=== PATIENT | female | born 1995 | race Caucasian/White ===

== ENCOUNTER 2017-05-17 11:54 | Emergency (ER) | payer MEDICAID ==
[~2017-05-17] VITALS: Ht 154.9 cm; Wt 63.5 kg
[2017-05-17 12:00] VITALS: BP_SYST 114
[2017-05-17 12:20] VITALS: BP_SYST 112
== END 2017-05-17 12:20 | disposition home or self-care (01) ==
LOC: SED 11:54
DX: H00.011 Hordeolum externum right upper eyelid (principal)
CPT/HCPCS: 99283

== ENCOUNTER 2017-12-16 15:04 | Emergency (ER) | payer SELFPAY ==
[~2017-12-16] VITALS: Ht 157.5 cm; Wt 63.5 kg
[2017-12-16 15:17] VITALS: BP_SYST 105
[2017-12-16 15:50] VITALS: BP_SYST 105
== END 2017-12-16 15:50 | disposition home or self-care (01) ==
LOC: SED 15:04
DX: H10.9 Unspecified conjunctivitis (principal)
CPT/HCPCS: 99283

== ENCOUNTER 2018-06-14 21:04 | Emergency (ER) | payer SELFPAY ==
[~2018-06-14] VITALS: Ht 154.9 cm; Wt 61.2 kg
[2018-06-14 21:10] VITALS: BP_SYST 113
[2018-06-14 23:12] VITALS: BP_SYST 112
== END 2018-06-14 23:12 | disposition home or self-care (01) ==
LOC: SED 21:04
DX: S16.1XXA Strain of muscle, fascia and tendon at neck level, initial encounter (principal); S29.012A Strain of muscle and tendon of back wall of thorax, initial encounter; V89.2XXA Person injured in unspecified motor-vehicle accident, traffic, initial encounter; Y93.89 Activity, other specified; Y92.410 Unspecified street and highway as the place of occurrence of the external cause; Y99.8 Other external cause status
CPT/HCPCS: 72128; 99284

== ENCOUNTER 2022-02-08 16:14 | Emergency (ER) | payer OTHER ==
[~2022-02-08] VITALS: Ht 152.4 cm; Wt 65.8 kg
[2022-02-08 16:15] VITALS: BP_SYST 111
--- NOTE | 2022-02-08 16:20 | NUR ---
Patient triaged and placed in waiting room. VSS and patient appears in no acute distress at this time. Accompanied by SELF, awaiting available bed, and MD notified of need for MSE.
[2022-02-08 17:20] LABS: HEMOGLOBIN 12.9 g/dL (12.0-16.0); WHITE BLOOD COUNT (AUTO) 11.5 K/uL (4.8-10.8)
[2022-02-08 17:27] LABS: HEMATOCRIT 38.5 % (36-48); MEAN CORPUSCULAR HEMOGLOBIN 28 pg (27-31); MEAN CORPUSCULAR HGB CONC 33 % (32-36); MEAN CORPUSCULAR VOLUME 85 fL (79.0-98.0); PLATELET COUNT (AUTO) 321 K/uL (130-430); RED BLOOD CELL COUNT(AUTO) 4.53 MIL/uL (4.2-6.2); RED CELL DISTRIBUTION WIDTH 13.8 % (9.0-15.0)
[2022-02-08 17:40] LABS: CALCIUM 9.8 mg/dL (8.4-11.0); CREATININE 0.82 mg/dL (0.55-1.30)
[2022-02-08 17:46] LABS: ALBUMIN 3.9 g/dL (3.4-4.8)
[2022-02-08 17:48] LABS: BAND % (MANUAL) 0 % (0-6); BASOPHILS % (MANUAL) 0 % (0-2); EOSINOPHILS % (MANUAL) 16 % (0-7); LYMPHOCYTES % (MANUAL) 29 % (20-46); MONOCYTES % (MANUAL) 3 % (0-11)
[2022-02-08 17:57] LABS: TOTAL BILIRUBIN 0.1 mg/dL (0.0-1.0)
--- NOTE | 2022-02-08 18:29 | NUR ---
BROUGHT BACK TO BED #7 AND REPORT GIVEN TO GARRISON
[2022-02-08] MEDS ORDERED: MAG HYDROX/AL HYDROX/SIMETH 30 ML, DICYCLOMINE HCL 20 MG, LIDOCAINE VISCOUS 2% 15ML (PO... PO ONE ×3 (18:45)
--- NOTE | 2022-02-08 18:58 | NUR ---
FIRST CONTACT WITH PT, REPORTS EPIGATSRIC PAIN/BURNING SENSATION X 8 DAYS,INTERMITTENT. WITH MILD NAUSEA,NO VOMTITING. DENIES FEVERS.
[2022-02-08] MEDS ORDERED: PANT20TA2 PO (20:38)
[2022-02-08 20:49] VITALS: BP_SYST 135
--- NOTE | 2022-02-08 20:52 | NUR ---
Patient given written and verbal discharge instructions and verbalizes understanding. ER MD discussed with patient the results and treatment provided. Patient in stable condition. ID arm band removed. no active bleeding. Rx of PROTONIX given. Patient educated on pain management and to follow up with PMD. Opportunity for questions provided and answered. Medication side effect fact sheet provided.
== END 2022-02-08 20:52 | disposition home or self-care (01) ==
LOC: SED 16:14
DX: K29.70 Gastritis, unspecified, without bleeding (principal); R10.13 Epigastric pain; Z91.010 Allergy to peanuts; Z79.899 Other long term (current) drug therapy
CPT/HCPCS: 99283; 85027; 80053; 83690; 85007; 36415; 81002; 81025; J2001